=== PATIENT | male | born 2005 | race Caucasian/White ===

== ENCOUNTER 2025-01-20 19:24 | Observation (INO) | payer BC ==
[~2025-01-20] VITALS: Ht 188 cm; Wt 81.7 kg
[2025-01-20 19:58] LABS: BASOPHILS ABSOLUTE AUTO 0.02 K/mm3 (0.00-0.23); BASOPHILS PERCENT AUTO 0 % (0-2); EOSINOPHILS ABSOLUTE AUTO 0.06 K/mm3 (0.00-0.68); EOSINOPHILS PERCENT AUTO 1 % (0-6); Hematocrit 46.0 % (37.0-53.0); Hemoglobin 15.5 g/dL (13.5-17.5); IMMATURE GRAN ABSOLUTE AUTO 0.01 K/mm3 (0.00-0.10); IMMATURE GRAN PERCENT AUTO 0 % (0-1); LYMPHOCYTES ABSOLUTE AUTO 2.75 K/mm3 (0.84-5.20); LYMPHOCYTES PERCENT AUTO 37 % (21-46); MONOCYTES ABSOLUTE AUTO 0.48 K/mm3 (0.16-1.47); MONOCYTES PERCENT AUTO 6 % (4-13); Mean Corpuscular HGB Conc 33.7 g/dL (31.5-36.5); Mean Corpuscular Volume 95 fL (80-100); NEUTROPHILS ABSOLUTE AUTO 4.18 K/mm3 (1.96-9.15); NEUTROPHILS PERCENT AUTO 56 % (41-73); NRBC ABSOLUTE 0.00 K/mm3 (0.00-0.02); NRBC Auto 0.0 /100 WBC (0.0-0.2); Platelet Count 233 K/mm3 (150-400); RDW Coefficient Variation 12.2 % (11.7-14.2); RDW Standard Deviation 42.6 fL (35.1-46.3)
[2025-01-20 20:26] LABS: Ethanol (Alcohol), Blood, Med <3 mg/dL; Salicylate <1.7 mg/dL (2.8-20.0)
[2025-01-20 20:32] LABS: Alanine Aminotransfer (ALT/SGP 31 U/L (12-78); Albumin, Blood 4.4 g/dL (3.4-5.0); Albumin/Globulin Ratio 1.2 (0.8-1.8); Anion Gap 8 mmol/L (3-11); Aspartate Aminotrans (AST/SGOT 29 U/L (12-37); Bilirubin, Total 0.8 mg/dL (0.1-1.0); Blood Urea Nitrogen 10 mg/dL (8-24); CO2, Blood 25 mmol/L (21-32); Calcium, Blood 8.9 mg/dL (8.5-10.1); Chloride, Blood 108 mmol/L (98-108); Creatinine, Blood 0.93 mg/dL (0.60-1.20); Globulin, Blood 3.8 g/dL (2.2-4.0); Glucose, Blood 86 mg/dL (70-99); Potassium, Blood 3.8 mmol/L (3.5-5.5); Sodium, Blood 137 mmol/L (136-145); Total Protein, Blood 8.2 g/dL (6.4-8.2)
[2025-01-20 20:33] LABS: Acetaminophen, Random <2.0 ug/mL (10.0-30.0)
[2025-01-20 23:46] LABS: Source, Urine Clean Catch
[2025-01-21 00:27] LABS: Bilirubin, Urine Neg (Neg); Glucose Qualitative, Urine Neg (Neg); Ketones, Urine 2+ (Neg); Leukocyte Esterase, Urine Neg (Neg); Protein, Urine 2+ (Neg); Specific Gravity, Urine 1.025 (1.003-1.022); Urobilinogen, Urine NORM (Normal)
[2025-01-21 00:36] LABS: Color, Urine Yellow (P-Yellow)
[2025-01-21 00:37] LABS: Red Blood Cells, Urine 0-2 /hpf (0-2)
[2025-01-21 00:45] LABS: U Amphetamine Screen Not Detected; U Barbituate Screen Not Detected; U Benzodiazapine Screen Not Detected; U Buprenorphine Screen Not Detected; U Cannabinoids Screen DETECTED; U Cocaine Screen Not Detected; U Methadone Screen Not Detected; U Methamphetamine Screen Not Detected; U Opiates Screen Not Detected; U Oxycodone Screen Not Detected; U Phencyclidine Screen Not Detected
[2025-01-21] MEDS ORDERED: BRINTELLIX20 MG PO (16:34)
[2025-01-21] MEDS ORDERED: MIRT15 PO (16:35)
== END 2025-01-21 11:53 | disposition other institution (70) ==
LOC: ER 19:24 → EOR 19:25
PROVIDERS: ADMIT Student in an Organized Health Care Education/Training Program
DX: F33.2 Major depressive disorder, recurrent severe without psychotic features (principal); F17.200 Nicotine dependence, unspecified, uncomplicated
CPT/HCPCS: 80053; 80320; 81001; 85025; 99285; G0378; G0480

== ENCOUNTER 2025-01-21 10:43 | Inpatient (IN) | payer BC ==
[~2025-01-21] VITALS: Ht 188 cm; Wt 79.4 kg
[2025-01-21 12:04] VITALS: BP 131/85
[2025-01-21 12:21] VITALS: BP 131/85
[2025-01-21 12:52] VITALS: BP 131/85
[2025-01-21] MEDS ORDERED: Polyethylene Glycol 3350 17 gm PO PRN (14:05)
[2025-01-21] MEDS ORDERED: Ondansetron 4 MG SoluTab MM PRN (14:05)
[2025-01-21] MEDS ORDERED: Aluminum Hydroxide 320MG/5ML 473 ML PO PRN (14:10)
[2025-01-21] MEDS ORDERED: BRINTELLIX20 MG PO (16:34)
[2025-01-21] MEDS ORDERED: MIRT15 PO (16:35)
--- NOTE | 2025-01-21 16:40 | NUR ---
ADMIT ASSESSMENT: PT WAS ADMITTED TO [facility] FROM [facility] WITH ALL OF HIS BELONGINGS AT 11:57. PT PRESENTED ANXIOUS, DEPRESSED WITH THOUGHTS OF SI. HE REPORTED 2 PAST ATTEMPS OF OD ON "PILLS." THIS TIME HE WAS FEELING UNSAFE AND LIKE HE COULD ATTEMPT AN OD BUT WENT TO THE ED FOR HELP. HE IS VOLUNARY, PLEASANT AND COOPERATIVE. PT ANSWERED ALL QUESTIONS THOUGHTFULLY. HE WAS GIVEN A TOUR OF THE UNIT AND SHOWN TO HIS ROOM. HE WAS PROVIDED TOWELS, HE TOOK A SHOWER AND HAS BEEN NAPPING.
--- NOTE | 2025-01-21 18:29 | NUR ---
PT IS LAYING IN HIS BED AND STILL APPEARS TO BE SLEEPING.
--- NOTE | 2025-01-21 18:43 | NUR ---
PT IS NOW SITTING IN THE HALLWAY, "I DON'T LIKE IT HERE...AM I ON A 48 HOUR HOLD?" HE WAS REMINDED THAT HE IS VOLUNTARY. HE SAID THE WANTS TO LEAVE. HE WAS MADE AWARE THAT IF HE TRIES TO LEAVE AMA THAT HE WILL PROBABLY BE PUT ON A HOLD.
[2025-01-21 20:33] VITALS: BP 132/96
--- NOTE | 2025-01-21 22:40 | NUR ---
SHIFT SUMMARY: PT A/O X4. PT AVOIDS EYE CONTACT, DENIES SI,HI, AND AVH AT THIS TIME. STATES HE IS SAD, IRRITATABLE, ANXIOUS AND FEELS EMPTINESS INSIDE OF HIMSELF. HE AND HIS BOYFRIEND BROKE UP. PT IS FROM THE [facility] AND HAS BEEN HERE FOR ABOUT 2 MONTHS. STATES HE HAS GOOD FAMILY SUPPORT AT THIS TIME. PT KEEPS TO SELF. DID SIT IN THE GROUP ROOM TO WATCH MOVIE AND DO WORDSEARCH PUZZLES. PARTICIPATED IN SNACK AT 2030 AND THEN BACK TO GROUP ROOM UNTIL BED TIME. MED COMPLIANT. HAS BEEN SLEEPING SINCE GOING TO BED AT 2200. WILL CONTINUE TO MONITOR.
--- NOTE | 2025-01-22 00:10 | NUR ---
Assumed care from MARQUISE Wallace at [phone]. Questions answered. patient currently asleep.
--- NOTE | 2025-01-22 05:14 | NUR ---
END OF SHIFT SUMMARY No changes noted from previous summary at 2240. Patient has been sleeping throughout the night. Will continue close monitoring every 15 minutes for safety and comfort.
[2025-01-22] MEDS ORDERED: Multivitamins 1 Tab PO SCH (09:00)
[2025-01-22 10:04] LABS: CHOL/HDL RATIO 4.0; Cholesterol 162 mg/dL (50-200); HDL Cholesterol 40 mg/dL (>39); LDL/HDL RATIO 2.4; Low Density Lipoprotein Chol 96 mg/dL (0-110); Triglycerides 129 mg/dL (30-140); Very Low Density Lipoprot Chol 25 mg/dL (6-28)
--- NOTE | 2025-01-22 17:34 | NUR ---
SHIFT SUMMARY PT SLEPT LATE THIS MORNING AND MISSED BREAKFAST. WHEN HE WOKE IT WAS DUE TO ANOTHER PATIENT NEXT DOOR WHO WAS USING HEADPHONE AND SINGING AT THE TOP OF HER LUNGS. HE WAS IRRITATED BY THIS BUT PLEASANT AND TOOK HIS MORNING MEDICATION. HE HAS BEEN UP IN THE MILIEU SINCE THAT TIME AND ENGAGED IN ACTIVITIES THROUGHOUT THE DAY, HE DENIES SI/HI/AVH AND HAS HAD ONGOING Q15 MIN VISUAL SAFETY CHECKS ALL SHIFT
[2025-01-22 19:32] VITALS: BP 132/91
--- NOTE | 2025-01-23 05:26 | NUR ---
SHIFT SUMMARY Patient is alert and oriented times four. He was engaged in the milieu until bedtime and participated in snacks. he denied SI,HI and AVTH during evening assessment. Will continue close observation every 15 minutes for comfort and safety.
--- NOTE | 2025-01-23 18:39 | NUR ---
SHIFT SUMMARY PT AxOx4. PLEASANT AND COOPERATIVE WITH CARE. PT DENIED SI/HI AND AVTH THIS SHIFT. HE HAS BEEN FOLLOWING HIS TREATMENT PLAN INCLUDING TAKING ALL MEDICATIONS PRESCRIBED, ATTENDING MILIEU THERAPY GROUPS AND MINGLING APPROPRIATELY WITH STAFF/PEERS. HE ALSO HAD 2 VISITORS TODAY. PT IS CURRENTLY SITTING IN DINING ROOM EATING DINNER. NO IMMINENT DC PLANS AT THIS TIME. DENIED ANY NEEDS AT THIS TIME.
[2025-01-23 20:25] VITALS: BP 133/88
--- NOTE | 2025-01-24 04:21 | NUR ---
SHIFT SUMMARY Patient is alert and oriented times 4, pleasant and cooperative with staff and peers. Puma is active in the milieu and denied SI,HI and AVTH during evening assessment. Will continue close observation every 15 minutes for comfort and safety
[2025-01-24 09:28] VITALS: BP 132/80
--- NOTE | 2025-01-24 18:25 | NUR ---
SHIFT SUMMARY PT A/O X4; DENIES SI, HI, AVTH. HE REPORTS SOME ANXIETY RELATED TO DISCHARGE PLANS. HE SAYS THAT SOMETIMES FEELS A "KNOT" IN HIS CHEST WHEN HE FEELS REALLY ANXIOUS. EDUCATED PT ON OPTIONS FOR PRN ANXIETY MEDICATION. PT TRIED VISTARIL THIS SHIFT AND REPORTED THAT IT DID NOT WORK WELL, BUT FEELS THAT HE CAN USE HIS COPING SKILLS AT THIS TIME TIME. HE ATTENDS ALL GROUPS AND MEALS. HE CONTINUES TO BE MONITORED VIA Q15 ROUNDING FOR SAFETY AND WELLNESS.
[2025-01-24 19:50] VITALS: BP 132/84
--- NOTE | 2025-01-25 04:18 | NUR ---
Patient is alert and oriented times four. Continues to have rather flat affect, but does speak up to have his needs met. He was up in the milieu for a movie as well as snacks. Denies SI, HI and AVTH. Will continue close observation every 15 minutes for comfort and safety
[2025-01-25 08:57] VITALS: BP 121/84
--- NOTE | 2025-01-25 09:15 | NUR ---
IMPORTANT DISCHARGE INFORMATION PATIENT WILL BE DISCHARGING ON 01/27/25 AT 1PM. HIS MOTHER LILIANA WILL BE COMING TO PICK HIM UP. HER PHONE NUMBER IS . ALL PARTIES VERBALIZE AN UNDERSTANDING. FOLLOW UP WITH NEW PCP DR. SALAS AT THE [facility] ON 02/01/25 AT 3:10PM. ASK ABOUT THE REFERRAL TO MENTAL HEALTH AT THE [facility]. FOLLOW UP WITH [facility]: [facility]BERT FAX
--- NOTE | 2025-01-25 17:11 | NUR ---
DAY SHIFT SUMMARY- PATIENT HAS BEEN PRESENT ON THE UNIT, PARTICIPATING IN GROUPS, VISITING WITH OTHERS. HE TAKES MEDICATIONS PRESCRIBED. PATIENT DENIES SI,HI AND HALLUCINATIONS. HE ENDORSES ANXIETY. THIS MORNING, HE REQUESTED HYDROXYZINE FOR ANXIETY. IN THE AFTERNOON, HE STILL ENDORSES ANXIETY AND WE TALKED ABOUT HYDROXYZINE VS ZYPREXA FOR HIS SYMPTOMS. WE TALKED ABOUT SIDE EFFECTS THAT ARE POSSIBLE WITH ZYPREXA. HE IS NOT SHOWING ANY EPS AT THIS TIME, BUT IS AWARE THAT IT IS A POTENTIAL SIDE EFFECT OF THE ANTIPSYCHOTICS. PATIENT MOM CAME TO VISIT HIM THIS AFTERNOON. DISCHARGE IS ANTICIPATED ON THURSDAY.
[2025-01-25 21:30] VITALS: BP 140/79
--- NOTE | 2025-01-26 04:10 | NUR ---
SHIFT SUMMARY PT IN MILIEU AT START OF SHIFT. HE DENIED ANY SI, HI, THOUGHTS OF SELF HARM OR AVTH. HE REPORTED HIS ANXIETY WAS 5/10. MASS SCORE OF 4. HE RECEIVED PRN OLANZAPINE WITH GOOD EFFECT. HE WAS COMPLIANT WITH HIS MEDS, HAD EVENING SNACK AND WENT TO BED AFTER WATCHING SOME TV. HE HAS REMAINED IN BED THROUGHOUT THE NIGHT. Q15 MINUTE CHECKS TO CONTINUE PER PT SAFETY.
[2025-01-26 09:27] VITALS: BP 136/93
--- NOTE | 2025-01-26 18:04 | NUR ---
SHIFT SUMMARY PT UP THIS MORNING AND SHOWERED. HE DENIES ANY SI/HI/AVH. HE HAD C/O ANXIETY 4/10 JUST AFTER BREAKFAST BUT STATED HE DIDN'T WANT ANY PRN MEDS AND WOULD TRY SOME COPING SKILLS. HE CLAIMS THE ANXIETY IS R/T WHAT IS GOING TO HAPPEN WHEN HE GETS D/C'D. PT PARTICIPATED IN THE MILIEU AND WENT TO MOST GROUPS. HE DID NEED TO GET ENCOURAGED TO GO TO A COUPLE GROUPS. IN THE AFTERNOON HE CLAIMED HIS ANXIETY WENT UP TO 01/26 AND REQUESTED A PRN MED AND HE WAS GIVEN VISTARIL. PT HAD A VISIT WITH AILYN IN THE EVENING. HE WAS COOPERATIVE WITH MEDICATIONS THIS SHIFT AND ALL 15 MIN CHECKS WERE COMPLETED.
[2025-01-26 19:27] VITALS: BP 151/81
--- NOTE | 2025-01-27 04:36 | NUR ---
SHIFT SUMMARY: PATIENT WAS IN THE DINING AREA EATING DINNER AT THE BEGINNING OF THE SHIFT. HE CAME OUT AND WAS WAITING BY THE DAY ROOM DOOR. HE WENT INTO THE DAY ROOM TO WATCH TELEVISION WITH STAFF AND PEERS. HE WAS PLEASANT AND COOPERATIVE WITH CARES. HE STATED HE'D HAD "A GOOD DAY" AND HE WAS "LOOKING FORWARD TO DISCHARGE". HE STATED THAT HE'D HAD A VISIT WITH HIS FRIEND, AND THAT THEY WERE "TRYING TO WORK THINGS OUT". HE WAS COMPLIANT WITH EVENING MEDICATIONS, AND PARTICIPATED IN SNACK AND WRAP UP GROUP AT 2030. HE REMAINED UP TO FINISH WATCHING HIS TELEVISION SHOW, AND THEN HE WENT TO BED, WHERE HE WAS NOTED TO BE RESTING QUIETLY WITH EYES CLOSED AND RESPIRATIONS CONFIRMED FOR THE REMAINDER OF THE SHIFT. CONTINUING TO MONITOR FOR SAFETY WITH Q15 MINUTE CHECKS.
[2025-01-27 07:41] VITALS: BP 142/87
--- NOTE | 2025-01-27 07:43 | NUR ---
SHIFT ASSESSMENT: PT DENIED SI, HI, AVH AND PHYSICAL PAIN. HE ENDORSED ANXIETY, "A LITTLE BIT...ABOUT LEAVING HERE." PT DESCRIBED HIS MOOD , "GOOD...HAPPY...CONTENT." HIS AFFECT WAS EUTHYMIC. PT IS ACTIVE IN THE PT MILIEU AND IS PLEASANT AND COOPERATIVE WITH CARE.
[2025-01-27] MEDS ORDERED: ABILIFY MYCITE5 M2 PO (08:42)
[2025-01-27] MEDS ORDERED: Prozac20 MG PO (08:45)
--- NOTE | 2025-01-27 10:56 | NUR ---
DISCHARGE SUMMARY: 10:[address] [facility] WITH ALL OF HIS POSSESSIONS AND HIS PRINTED DISCHARGE INSTRUCTIONS. PT EXPRESSED UNDERSTANDING OF ALL DISCHARGE INSTRUCTIONS. HE DEVELOPED A SAFETY PLAN AND WAS GIVEN A COPY OF IT WITH THE ORIGINAL IN HIS MEDICAL RECORD. PT'S MOM BROUGHT HIS CAR WHICH HE WILL DRIVE HOME. PT PARTICIPATED IN GROUPS AND THE PT MILIEU THIS MORNING.
== END 2025-01-27 11:01 | disposition home or self-care (01) | DRG 885 ==
LOC: BHU 10:43
PROVIDERS: ADMIT Student in an Organized Health Care Education/Training Program
DX: F33.2 Major depressive disorder, recurrent severe without psychotic features (principal); R45.851 Suicidal ideations; F10.90 Alcohol use, unspecified, uncomplicated; F12.90 Cannabis use, unspecified, uncomplicated; F17.200 Nicotine dependence, unspecified, uncomplicated; Z79.1 Long term (current) use of non-steroidal anti-inflammatories (NSAID); Z79.899 Other long term (current) drug therapy
CPT/HCPCS: 36415; 80061; 83036; A9270